=== PATIENT | female | born 1950 | race Two or more races ===

== ENCOUNTER 2016-05-28 12:26 | Emergency (ER) | payer MEDICARE, MEDICAID ==
[~2016-05-28] VITALS: Ht 160 cm; Wt 65.8 kg
[~2016-05-28 12:26] MED LIST: ASPI-378 PO; CHOL400C15 PO; CIPR-217 PO; GABA-494 PO; INSUINJ18 SC; LISI40TA PO; METF-312 PO; NITR-48 PO
[2016-05-28] MEDS ORDERED: SILVER SULFADIAZINE 1 % TOPICAL CREAM 50GM TOP ONE ×2 (14:00→14:02)
[2016-05-28 15:45] VITALS: BP 143/81
== END 2016-05-28 15:49 | disposition home or self-care (01) ==
LOC: ER 12:26
DX: T23.262A Burn of second degree of back of left hand, initial encounter (principal); I10 Essential (primary) hypertension; E11.9 Type 2 diabetes mellitus without complications; E78.5 Hyperlipidemia, unspecified; Z90.710 Acquired absence of both cervix and uterus; T21.22XA Burn of second degree of abdominal wall, initial encounter; T21.21XA Burn of second degree of chest wall, initial encounter; T24.212A Burn of second degree of left thigh, initial encounter; T24.211A Burn of second degree of right thigh, initial encounter; X10.0XXA Contact with hot drinks, initial encounter; Y93.89 Activity, other specified; Y99.8 Other external cause status; Y92.89 Other specified places as the place of occurrence of the external cause
CPT/HCPCS: 16020

== ENCOUNTER 2018-01-18 21:21 | Emergency (ER) | payer OTHER, MEDICAID ==
[~2018-01-18] VITALS: Ht 157.5 cm; Wt 74.8 kg
[~2018-01-18 21:21] MED LIST changes: +ATOR20TA50 PO; -GABA-494 PO; +GABA100C9 PO; -METF-312 PO; +METF-370 PO; -NITR-48 PO; +NITR100C44 PO
[2018-01-18 23:09] LABS: Basophils # (auto) 0 uL; Basophils % (auto) 0.2 % (0.0-2.0); Eosinophils # (auto) 0 uL; Eosinophils % (auto) 0.4 % (0.0-7.0); Hematocrit 41.3 % (36.0-46.0); Hemoglobin 14.1 g/dL (12.2-16.2); Lymphocytes # (auto) 1.5 uL; Lymphocytes % (auto) 18.9 % (10.0-50.0); Mean Corpuscular Hemoglobin 32.6 pg (28.0-32.0); Mean Corpuscular Hgb Conc. 34.3 g/dL (32.0-36.0); Monocytes # (auto) 0.5 uL; Monocytes % (auto) 6.7 % (0.0-12.0); Neutrophils # (auto) 5.8 uL; Neutrophils % (auto) 73.8 % (37.0-80.0); Nucleated Red Blood Cells % 0.1 %; Platelet Count (auto) 164 10^3/uL (140-450); Red Blood Cells 4.34 10^6/uL (4.0-5.20); Red Cell Distribution Width 13.1 % (11.8-14.3); White Blood Cell 7.9 10^3/uL (4.4-10.8)
[2018-01-18 23:11] LABS: INR 0.89 (0.9-1.15); Partial Thromboplastin Time 24.4 sec (23.78-33.04); Prothrombin Time 9.6 sec (9.27-12.13)
[2018-01-18] MEDS ORDERED: MORPHINE SULFATE 4 MG/ML SYR/VIAL IV ONE (23:45)
[2018-01-18] MEDS ORDERED: ONDANSETRON HCL 4 MG/2 ML VIAL IV ONE (23:45)
[2018-01-18 23:47] LABS: Anion Gap 12 (5-15); Blood Urea Nitrogen 17 mg/dL (7-18); Carbon Dioxide 24 mmol/L (21-32); Chloride 105 mmol/L (98-107); Glucose 167 mg/dL (74-106); Potassium 3.4 mmol/L (3.5-5.1); Sodium 141 mmol/L (136-145)
[2018-01-18 23:48] LABS: Alanine Aminotransferase 38 U/L (13-56); Albumin 3.6 g/dL (3.4-5.0); Alkaline Phosphatase 117 U/L (45-117); Aspartate Aminotransferase 17 U/L (15-37); BUN/Creatinine Ratio 21.3; Bilirubin, Total 0.3 mg/dL (0.2-1.0); Calcium 8.4 mg/dL (8.5-10.1); GFR African American 92 mL/min; GFR Non-African American 76 mL/min; Magnesium 2.5 mg/dL (1.6-2.6); Total Protein 7.8 g/dL (6.4-8.2)
[2018-01-19 03:21] VITALS: BP 118/77
== END 2018-01-19 04:33 | disposition home or self-care (01) ==
LOC: ER 21:21
DX: K29.00 Acute gastritis without bleeding (principal); E11.9 Type 2 diabetes mellitus without complications; E78.5 Hyperlipidemia, unspecified; I10 Essential (primary) hypertension; Z79.899 Other long term (current) drug therapy; Z79.4 Long term (current) use of insulin; Z86.73 Personal history of transient ischemic attack (TIA), and cerebral infarction without residual deficits; Z90.710 Acquired absence of both cervix and uterus
CPT/HCPCS: 36415; 71045; 76705; 80053; 83690; 83735; 83880; 84484; 85025; 85610; 85730; 93005; 94761; 96374; 96375; 99285; J2270; J2405

== ENCOUNTER 2022-04-20 10:59 | Emergency (ER) | payer OTHER, MEDICAID ==
[~2022-04-20] VITALS: Ht 170.2 cm; Wt 80.0 kg
[~2022-04-20 10:59] MED LIST changes: -CIPR-217 PO; +CIPR500T4 PO; -LISI40TA PO; +LISI40TA11 PO; +NITR-87 PO; -NITR100C44 PO
[2022-04-20 12:40] LABS: Basophils # (auto) 0 10 ^3/uL (0-0.2); Basophils % (auto) 0.3 % (0.0-2.0); Eosinophils # (auto) 0.1 10 ^3/uL (0-0.8); Eosinophils % (auto) 1.3 % (0.0-7.0); Hematocrit 41.8 % (36.0-46.0); Hemoglobin 14.1 g/dL (12.2-16.2); Lymphocytes # (auto) 1.3 10 ^3/uL (0.4-5.4); Lymphocytes % (auto) 28.6 % (10.0-50.0); Mean Corpuscular Hemoglobin 31.9 pg (28.0-32.0); Mean Corpuscular Hgb Conc. 33.7 g/dL (32.0-36.0); Mean Corpuscular Volume 94.6 fL (80.0-100.0); Monocytes # (auto) 0.4 10 ^3/uL (0-1.3); Monocytes % (auto) 8.2 % (0.0-12.0); Neutrophils # (auto) 2.8 10 ^3/uL (1.6-8.6); Neutrophils % (auto) 61.6 % (37.0-80.0); Nucleated Red Blood Cells % 0.1 %; Red Blood Cells 4.42 10^6/uL (4.0-5.20); Red Cell Distribution Width 13.4 % (11.8-14.3); White Blood Cell 4.6 10^3/uL (4.4-10.8)
[2022-04-20 12:50] LABS: Urine Bacteria NONE SEEN /hpf (None Seen); Urine Blood Negative /uL (Negative); Urine Specific Gravity 1.017 (1.001-1.035); Urine WBC 30 /hpf (0 - 5)
[2022-04-20 12:59] LABS: Albumin 3.6 g/dL (3.4-5.0); Calcium 8.8 mg/dL (8.5-10.1); Potassium 4.2 mmol/L (3.5-5.1)
[2022-04-20 13:08] LABS: Bilirubin, Total 0.6 mg/dL (0.2-1.0); Total Protein 7.2 g/dL (6.4-8.2)
[2022-04-20] MEDS ORDERED: ASPirin 81 mg TAB PO ONE (13:30)
[2022-04-20] MEDS ORDERED: SODIUM CHLORIDE 0.9% 1,000 ML IV ONE (13:30)
[2022-04-20] MEDS ORDERED: NITR-87 PO (15:35)
[2022-04-20] MEDS ORDERED: ATEN-60 PO (15:35)
[2022-04-20 15:49] VITALS: BP 161/101
== END 2022-04-20 15:51 | disposition home or self-care (01) ==
LOC: ER 10:59
DX: R07.89 Other chest pain (principal); E11.65 Type 2 diabetes mellitus with hyperglycemia; N39.0 Urinary tract infection, site not specified; I10 Essential (primary) hypertension; G81.94 Hemiplegia, unspecified affecting left nondominant side; E11.9 Type 2 diabetes mellitus without complications; E78.5 Hyperlipidemia, unspecified; Z90.710 Acquired absence of both cervix and uterus; Z86.73 Personal history of transient ischemic attack (TIA), and cerebral infarction without residual deficits
CPT/HCPCS: 36415; 71045; 80053; 81001; 83735; 83880; 84484; 85025; 93005; 96360; 96361; 99285; J7030